=== PATIENT | male | born 1950 | race African-American/Black ===

== ENCOUNTER 2020-03-02 17:54 | Emergency (ER) | payer MEDICARE, OTHER ==
[2020-03-02 18:11] VITALS: BMI 22.9
[2020-03-02 21:15] LABS: BASO % 0.5 % (0-2.0); HEMATOCRIT 42.1 % (35.4-49); HEMOGLOBIN 14.7 GM/dL (11.7-16.9); LYMPH % 29.5 % (8-40); MCH 32.1 pg (25.7-33.7); MCHC 34.9 g/dl (32.0-35.9); MEAN PLT VOLUME 8.5 fl (7.5-11.1); MONO % 10.7 % (3.8-10.2); NEUT % 59.3 % (42.8-82.8); PLATELET COUNT 154 K/MM3 (134-434); RBC 4.57 M/mm3 (4.00-5.60); RDW 12.8 % (11.9-15.9); WHITE BLOOD COUNT 6.5 K/mm3 (4.0-10.0)
[2020-03-02 21:29] LABS: CHLORIDE 100 mmol/L (98-107); POTASSIUM 3.9 mmol/L (3.5-5.1); SODIUM 134 mmol/L (136-145)
[2020-03-02 21:34] LABS: ALBUMIN 3.6 g/dl (3.4-5.0); ANION GAP 8 MMOL/L (8-16); BLOOD UREA NITROGEN 13.5 mg/dL (7-18); CALCIUM 8.1 mg/dL (8.5-10.1); CO2 25 mmol/L (21-32); GLUCOSE,RANDOM 97 mg/dL (74-106)
[2020-03-02 21:36] LABS: MAGNESIUM 1.6 mg/dL (1.8-2.4)
[2020-03-02 21:37] LABS: CREATININE 0.8 mg/dL (0.55-1.3); SGOT/AST 43 U/L (15-37); SGPT/ALT 45 U/L (13-61)
[2020-03-02 21:39] LABS: LDH 236 U/L (87-246)
[2020-03-02 21:40] LABS: ALK PHOS 70 U/L (45-117); BILIRUBIN,TOTAL 1.2 mg/dL (0.2-1); TOT PROT 8.3 g/dl (6.4-8.2)
[2020-03-02] MEDS ORDERED: BAMLANIVIMAB 700 MG in SODIUM CHLORIDE 180 ML IVPB ONE (22:14)
[2020-03-03 01:51] VITALS: BP 128/76; PULSE 102; TEMP 102.8
[2020-03-03] MEDS ORDERED: ACETAMINOPHEN 325 MG TABLET (FP) PO ONE (02:05)
[2020-03-03] MEDS ORDERED: ACETAMINOPHEN 325 MG TABLET (FP) ONE (02:08)
== END 2020-03-03 03:43 | disposition home or self-care (01) ==
LOC: JERFT 17:54 → JER 17:54 → JERFT 03-03 03:43
PROC: 3E033NZ Introduction of Analgesics, Hypnotics, Sedatives into Peripheral Vein, Percutaneous Approach (ICD-10-PCS; principal; 2020-03-02)
DX: U07.1 COVID-19 (principal)
CPT/HCPCS: 36415; 71046-TC-FY; 80053; 82550; 82728; 83615; 83735; 83880; 84484; 85025; 85379; 86140; 93005; 93010; 99284-25; C9803; M0239; Q0239; U0003